=== PATIENT | female | born 1945 | race Caucasian/White ===

== ENCOUNTER → 2020-11-11 | Outpatient (CLI) | payer OTHER ==
[~2020-11-11] MED LIST: ARMOUR; ARMOUR THYROID30 MG PO; ASPIRIN 325MG325 MG PO; ASPIRIN81 MG PO; BENADRYL; BENADRYL25 MG PO; BILBERRY100 MG PO; CALCIUM MAGNES1 EAC1 PO; GLUTATHIONE PO; HAWTHORN BERRI565 MG PO; HEMP OIL PO; HIGH POTENCY; HYDROCODON-ACE1 EAC2 PO; ISOSORBIDE MONO30 MG PO; LOPRESSOR 25 MG25 MG PO; LUTEIN-ZEAXANT1 EAC1 PO; MAXIMUM DAILY1 EAC1 PO; METOPROLOL; METOPROLOL TART25 MG PO; MOBIC15 MG PO; PROBIOTIC1 EAC1 PO; SANTYL OINT 3030 GM TP; TYLENOL; TYLENOL EXTRA500 MG PO; UBIQUINOL100 MG PO; WOMEN'S DAILY1 EAC1 PO; [UNRECOGNIZED DRUG - OTHER] PO
[2020-11-11 11:30] LABS: HEMOGLOBIN 14.9 gm/dl (12.3-15.3); RED BLOOD COUNT 4.76 M/UL (4.00-5.10); WHITE BLOOD COUNT 7.9 K/UL (4.5-11.0)
[2020-11-11 11:44] LABS: BUN/CREATININE RATIO 36 (0-10)
== END ==
LOC: OPSV2 10:38 → EDSTATUS 11:00
PROVIDERS: Orthopaedic Surgery
DX: M17.12 Unilateral primary osteoarthritis, left knee (principal); Z88.8 Allergy status to other drugs, medicaments and biological substances; N39.3 Stress incontinence (female) (male); I51.7 Cardiomegaly
CPT/HCPCS: 36415; 71046; 80048; 81001; 85025; 87081

== ENCOUNTER → 2020-11-27 | Outpatient (CLI) | payer OTHER | LOC: ECHO 10:52 → NM 13:00 | DX: R94.31 Abnormal electrocardiogram [ECG] [EKG] (principal); I27.20 Pulmonary hypertension, unspecified; I08.8 Other rheumatic multiple valve diseases; R93.1 Abnormal findings on diagnostic imaging of heart and coronary circulation; R94.39 Abnormal result of other cardiovascular function study | CPT/HCPCS: ECHO; 78452; 93017; 93306; A9502; J2785 ==

== ENCOUNTER → 2020-12-25 | Outpatient (CLI) | payer OTHER ==
[2020-12-25 10:41] LABS: HEMOGLOBIN 14.4 gm/dl (12.3-15.3); RED BLOOD COUNT 4.63 M/UL (4.00-5.10); WHITE BLOOD COUNT 9.2 K/UL (4.5-11.0)
[2020-12-25 11:10] LABS: BUN/CREATININE RATIO 31 (0-10)
== END ==
LOC: LAB 09:39
PROVIDERS: Internal Medicine Interventional Cardiology
DX: R94.31 Abnormal electrocardiogram [ECG] [EKG] (principal); R94.39 Abnormal result of other cardiovascular function study; I10 Essential (primary) hypertension; E78.00 Pure hypercholesterolemia, unspecified; R06.02 Shortness of breath
CPT/HCPCS: 36415; 80048; 85025; 85610; 85730; 93005

== ENCOUNTER → 2020-12-29 | Outpatient (CLI) | payer OTHER | LOC: CATH 09:04 | DX: I25.118 Atherosclerotic heart disease of native coronary artery with other forms of angina pectoris (principal); I10 Essential (primary) hypertension; E78.00 Pure hypercholesterolemia, unspecified; Z88.8 Allergy status to other drugs, medicaments and biological substances | CPT/HCPCS: 85347; 93571; 99152; 99153; C1769; J0153; J1644; J2250; J3010; J7030; Q9967 ==

== ENCOUNTER → 2021-03-04 | Outpatient (CLI) | payer OTHER ==
[2021-03-04 12:03] LABS: HEMOGLOBIN 13.9 gm/dl (12.3-15.3); RED BLOOD COUNT 4.41 M/UL (4.00-5.10); WHITE BLOOD COUNT 8.2 K/UL (4.5-11.0)
[2021-03-04 12:30] LABS: BUN/CREATININE RATIO 35 (0-10)
== END ==
LOC: OPSV2 10:00 → EDSTATUS 10:00 → OPSV2 10:38
PROVIDERS: Orthopaedic Surgery
DX: Z01.818 Encounter for other preprocedural examination (principal); M17.12 Unilateral primary osteoarthritis, left knee
CPT/HCPCS: 36415; 80048; 81001; 85025; 87081; 93005

== ENCOUNTER → 2021-03-15 | Outpatient (CLI) | payer OTHER ==
[2021-03-15 12:49] LABS: BUN/CREATININE RATIO 35 (0-10)
== END ==
LOC: LAB 12:08
PROVIDERS: Orthopaedic Surgery
DX: Z01.812 Encounter for preprocedural laboratory examination (principal)
CPT/HCPCS: 36415; 80048; 86850; 86900; 86901

== ENCOUNTER 2021-03-16 07:18 | Day surgery (SDC) | payer OTHER ==
[~2021-03-16] VITALS: Ht 162.6 cm; Wt 100.2 kg
[~2021-03-16 07:18] MED LIST changes: -ASPIRIN 325MG325 MG PO; -BENADRYL25 MG PO; -CALCIUM MAGNES1 EAC1 PO; -GLUTATHIONE PO; -HEMP OIL PO; -HYDROCODON-ACE1 EAC2 PO; -MAXIMUM DAILY1 EAC1 PO; -METOPROLOL TART25 MG PO; -PROBIOTIC1 EAC1 PO; -TYLENOL EXTRA500 MG PO; -[UNRECOGNIZED DRUG - OTHER] PO
[2021-03-16] MEDS ORDERED: ARMOUR THYROID30 MG PO (08:01)
[2021-03-16] MEDS ORDERED: BENADRYL25 MG PO (08:03)
[2021-03-16] MEDS ORDERED: MAXIMUM DAILY1 EAC1 PO (08:05)
[2021-03-16] MEDS ORDERED: METOPROLOL TART25 MG PO (08:07)
[2021-03-16] MEDS ORDERED: TYLENOL EXTRA500 MG PO (08:09)
[2021-03-16] MEDS ORDERED: HEMP OIL PO (08:10)
[2021-03-16] MEDS ORDERED: [UNRECOGNIZED DRUG - OTHER] PO (08:12)
[2021-03-16] MEDS ORDERED: GLUTATHIONE PO (08:13)
[2021-03-16] MEDS ORDERED: PROBIOTIC1 EAC1 PO (08:13)
[2021-03-16] MEDS ORDERED: CALCIUM MAGNES1 EAC1 PO (08:14)
[2021-03-17 03:47] LABS: RED BLOOD COUNT 4.17 M/UL (4.00-5.10); WHITE BLOOD COUNT 11.6 K/UL (4.5-11.0)
[2021-03-17] MEDS ORDERED: ASPIRIN 325MG325 MG PO (11:11)
[2021-03-17] MEDS ORDERED: HYDROCODON-ACE1 EAC2 PO (12:36)
== END 2021-03-17 13:37 | disposition home health service (06) ==
LOC: OR 07:18 → EDSTATUS 08:45 → M/S 14:02 → OR 03-17 13:37
PROVIDERS: Orthopaedic Surgery
PROC: 3E0T3BZ Introduction of Anesthetic Agent into Peripheral Nerves and Plexi, Percutaneous Approach (ICD-10-PCS; 2021-03-16)
PROC: 3E0T3BZ Introduction of Anesthetic Agent into Peripheral Nerves and Plexi, Percutaneous Approach (ICD-10-PCS; 2021-03-16)
PROC: 0SRD0J9 Replacement of Left Knee Joint with Synthetic Substitute, Cemented, Open Approach (ICD-10-PCS; principal; 2021-03-16 08:45)
DX: M17.12 Unilateral primary osteoarthritis, left knee (principal); G89.18 Other acute postprocedural pain; I25.10 Atherosclerotic heart disease of native coronary artery without angina pectoris; I10 Essential (primary) hypertension; E78.00 Pure hypercholesterolemia, unspecified; E78.5 Hyperlipidemia, unspecified; E03.9 Hypothyroidism, unspecified; I44.0 Atrioventricular block, first degree; E66.9 Obesity, unspecified; Z68.37 Body mass index [BMI] 37.0-37.9, adult; Z20.822 Contact with and (suspected) exposure to COVID-19; Z88.5 Allergy status to narcotic agent; Z88.8 Allergy status to other drugs, medicaments and biological substances; Z79.82 Long term (current) use of aspirin; Z79.899 Other long term (current) drug therapy
CPT/HCPCS: 36415; 73560; 76000; 85025; 97116-GP-CQ; 97162; 97166; 97530-GP-CQ; 97535; C1776; J0171; J0690; J1100; J2001; J2405; J2704; J2795; J7120

== ENCOUNTER → 2021-09-28 | Outpatient (CLI) | payer OTHER ==
[~2021-09-28] MED LIST changes: +ASPIRIN 325MG325 MG PO; +BENADRYL25 MG PO; +CALCIUM MAGNES1 EAC1 PO; +GLUTATHIONE PO; +HEMP OIL PO; +HYDROCODON-ACE1 EAC2 PO; +LOW DOSE ASPIRI81 MG PO; +MAXIMUM DAILY1 EAC1 PO; +METOPROLOL TART25 MG PO; +PROBIOTIC1 EAC1 PO; +TYLENOL EXTRA500 MG PO; +[UNRECOGNIZED DRUG - OTHER] PO
[2021-09-28 12:36] LABS: HEMOGLOBIN 13.6 gm/dl (12.3-15.3); RED BLOOD COUNT 4.43 M/UL (4.00-5.10); WHITE BLOOD COUNT 8.3 K/UL (4.5-11.0)
[2021-09-28 12:40] LABS: BUN/CREATININE RATIO 40 (0-10)
== END ==
LOC: OPSV2 10:56 → EDSTATUS 11:00 → OPSV2 11:00
PROVIDERS: Orthopaedic Surgery
DX: Z01.818 Encounter for other preprocedural examination (principal); M17.11 Unilateral primary osteoarthritis, right knee; I10 Essential (primary) hypertension; I25.10 Atherosclerotic heart disease of native coronary artery without angina pectoris; I45.10 Unspecified right bundle-branch block; R94.31 Abnormal electrocardiogram [ECG] [EKG]
CPT/HCPCS: 36415; 80048; 85025; 93005

== ENCOUNTER → 2021-10-12 | Day surgery (SDC) | payer OTHER ==
[~2021-10-12] VITALS: Ht 162.6 cm; Wt 93.9 kg
[~2021-10-12] MED LIST changes: +VAZALORE325 MG PO
[2021-10-12 07:02] LABS: BUN/CREATININE RATIO 40 (0-10)
== END | disposition home or self-care (01) ==
LOC: OR 05:36 → EDSTATUS 11:15
PROVIDERS: Orthopaedic Surgery
DX: M17.11 Unilateral primary osteoarthritis, right knee (principal); E78.5 Hyperlipidemia, unspecified; I10 Essential (primary) hypertension; E03.9 Hypothyroidism, unspecified; Z88.5 Allergy status to narcotic agent; Z88.8 Allergy status to other drugs, medicaments and biological substances; Z79.82 Long term (current) use of aspirin; Z79.899 Other long term (current) drug therapy; Z20.822 Contact with and (suspected) exposure to COVID-19
CPT/HCPCS: 36415; 73560; 76000; 80048; 86850; 86900; 86901; 97162; 97165; 97530; C1776; J0690; J2001; J2370; J2704; J2795; J7120